=== PATIENT | male | born 1950 | race Asian ===

== ENCOUNTER → 2017-08-15 | Outpatient (CLI) | payer MEDICARE | END | disposition home or self-care (01) | LOC: CFH 15:44 | PROVIDERS: ATTEND Student in an Organized Health Care Education/Training Program | DX: M51.36 Other intervertebral disc degeneration, lumbar region (principal); M51.26 Other intervertebral disc displacement, lumbar region; M48.061 Spinal stenosis, lumbar region without neurogenic claudication; M25.78 Osteophyte, vertebrae; M41.9 Scoliosis, unspecified | CPT/HCPCS: 72148 ==

== ENCOUNTER 2017-12-18 15:14 | Emergency (ER) | payer MEDICARE ==
[~2017-12-18] VITALS: Ht 162.6 cm; Wt 64.0 kg
[2017-12-18 15:39] LABS: BASOPHILS # (AUTO) 0.03 x10^3/uL (0-0.1); BASOPHILS % (AUTO) 0 % (0-1); EOSINOPHILS # (AUTO) 0.04 x10^3/uL (0-0.4); EOSINOPHILS % (AUTO) 0 % (1-7); LYMPHOCYTES # (AUTO) 3.71 x10^3/uL (1-3.4); LYMPHOCYTES % (AUTO) 42 % (22-44); MD NO; MEAN CORPUSCULAR HEMOGLOBIN 33.5 pg (27.5-34.5); MEAN CORPUSCULAR HGB CONC 34.1 g/dL (33.2-36.2); MEAN CORPUSCULAR VOLUME 98.2 fL (81-97); MEAN PLATELET VOLUME 9.7 fL (7.4-10.4); MONOCYTES # (AUTO) 0.52 x10^3/uL (0.2-0.8); MONOCYTES % (AUTO) 6 % (2-9); NEUTROPHILS # (AUTO) 4.62 x10^3/uL (1.8-6.8); NEUTROPHILS % (AUTO) 52 % (42-75); PLATELET COUNT 159 x10^3/uL (130-400); RED BLOOD COUNT 5.02 x10^6/uL (4.38-5.82); RED CELL DISTRIBUTION WIDTH 14.2 % (9.4-14.8)
[2017-12-18] MEDS ORDERED: ATOR40TA PO (15:40)
[2017-12-18] MEDS ORDERED: ESOM40CA PO (15:40)
[2017-12-18] MEDS ORDERED: ALLO300T PO (15:40)
[2017-12-18] MEDS ORDERED: ASPI-496 PO (15:40)
[2017-12-18 15:50] LABS: ALBUMIN 4.3 g/dL (3.4-5.0); ANION GAP 7 mmol/L (5-15); CALCIUM 9.3 mg/dL (8.5-10.1); CHLORIDE 107 mmol/L (98-107)
[2017-12-18] MEDS ORDERED: ASPIRIN 81 MG TABLET CHEW PO ONE (17:00)
[2017-12-18] MEDS ORDERED: MAALOX/HYOSCYAMINE/LIDOCAINE 45 ML BTL PO ONE (17:30)
[2017-12-18] MEDS ORDERED: ASPIRIN 81 MG TABLET CHEW ONE (17:32)
[2017-12-18] MEDS ORDERED: MAALOX/HYOSCYAMINE/LIDOCAINE 45 ML BTL ONE (17:32)
[2017-12-18 17:42] LABS: TROPONIN I 0.066 ng/mL (0.000-0.045)
[2017-12-18 18:28] VITALS: BP 121/78
== END 2017-12-18 18:30 | disposition home or self-care (01) ==
LOC: ED 16:49
DX: R07.89 Other chest pain (principal); I25.2 Old myocardial infarction; I25.10 Atherosclerotic heart disease of native coronary artery without angina pectoris; E78.5 Hyperlipidemia, unspecified; M10.9 Gout, unspecified; Z95.1 Presence of aortocoronary bypass graft
CPT/HCPCS: 36415; 71045; 80048; 82040; 84484; 85025; 93005; 99285

== ENCOUNTER → 2018-01-27 | Outpatient (CLI) | payer MEDICARE ==
[~2018-01-27] MED LIST: ALLO300T PO; ASPI-496 PO; ATOR40TA PO; ESOM40CA PO
== END | disposition home or self-care (01) ==
LOC: CFH 12:17
PROVIDERS: ATTEND Internal Medicine Cardiovascular Disease
DX: I21.29 ST elevation (STEMI) myocardial infarction involving other sites (principal); I25.9 Chronic ischemic heart disease, unspecified; Z95.1 Presence of aortocoronary bypass graft
CPT/HCPCS: 78452; 93017; A9502

== ENCOUNTER → 2018-03-14 | Outpatient (CLI) | payer MEDICARE ==
[~2018-03-14] MED LIST changes: +ALLO100T30 PO; +AMOX-291 PO; +ESOM20CA PO; +[UNRECOGNIZED DRUG - OTHER]
[2018-03-14 11:23] LABS: BASOPHILS # (AUTO) 0.02 x10^3/uL (0-0.1); BASOPHILS % (AUTO) 0 % (0-1); EOSINOPHILS # (AUTO) 0.08 x10^3/uL (0-0.4); EOSINOPHILS % (AUTO) 1 % (1-7); LYMPHOCYTES # (AUTO) 2.52 x10^3/uL (1-3.4); LYMPHOCYTES % (AUTO) 39 % (22-44); MD NO; MEAN CORPUSCULAR HEMOGLOBIN 32.8 pg (27.5-34.5); MEAN CORPUSCULAR HGB CONC 33.3 g/dL (33.2-36.2); MEAN CORPUSCULAR VOLUME 98.5 fL (81-97); MEAN PLATELET VOLUME 10.6 fL (7.4-10.4); MONOCYTES # (AUTO) 0.45 x10^3/uL (0.2-0.8); MONOCYTES % (AUTO) 7 % (2-9); NEUTROPHILS # (AUTO) 3.38 x10^3/uL (1.8-6.8); NEUTROPHILS % (AUTO) 52 % (42-75); PLATELET COUNT 146 x10^3/uL (130-400); RED BLOOD COUNT 4.94 x10^6/uL (4.38-5.82)
[2018-03-14 11:32] LABS: INTERNATIONAL NORMALIZED RATIO 0.98 (0.93-1.1); PROTHROMBIN TIME 10.4 Seconds (9.6-11.5)
[2018-03-14 11:33] LABS: ANION GAP 5 mmol/L (5-15); CALCIUM 9.6 mg/dL (8.5-10.1); CHLORIDE 105 mmol/L (98-107); CREATININE 1.06 mg/dL (0.7-1.3)
== END | disposition home or self-care (01) ==
LOC: STAR 10:13
PROVIDERS: ATTEND Internal Medicine Cardiovascular Disease
DX: Z01.818 Encounter for other preprocedural examination (principal); I25.10 Atherosclerotic heart disease of native coronary artery without angina pectoris; E78.2 Mixed hyperlipidemia; R03.0 Elevated blood-pressure reading, without diagnosis of hypertension; I34.0 Nonrheumatic mitral (valve) insufficiency; I10 Essential (primary) hypertension; E78.5 Hyperlipidemia, unspecified
CPT/HCPCS: 36415; 71046; 80048; 85025; 85610; 85730

== ENCOUNTER 2018-03-21 10:47 | Observation (INO) | payer MEDICARE ==
[~2018-03-21] VITALS: Ht 165.1 cm; Wt 63.3 kg
[2018-03-21] MEDS ORDERED: SODIUM CHLORIDE 0.9% 1,000 ML IV ONE (11:32)
[2018-03-21 11:37] VITALS: BP 151/92
[2018-03-21] MEDS ORDERED: MIDAZOLAM 1 MG/ML, 5ML ONE (12:45)
[2018-03-21] MEDS ORDERED: FENTANYL PF 100 MCG/2ML ONE (12:45)
[2018-03-21] MEDS ORDERED: LIDOCAINE-MPF 1%, 5ML ONE (12:46)
[2018-03-21] MEDS ORDERED: VERAPAMIL 2.5 MG/ML, 2ML ONE (12:46)
[2018-03-21] MEDS ORDERED: BIVALIRUDIN 250 MG ONE (12:46)
[2018-03-21] MEDS ORDERED: HEPARIN 1,000 UNITS/ML, 10ML ONE (12:46)
[2018-03-21] MEDS ORDERED: TICAGRELOR 90 MG TABLET ONE (12:46)
[2018-03-21 15:46] VITALS: BP 84/57
[2018-03-21] MEDS ORDERED: AMOXICILLIN 500 MG CAPSULE PO SCH (16:00)
[2018-03-21] MEDS: SODIUM CHLORIDE 0.9% 1,000 ML IV SCH ×2 (16:14→23:05)
[2018-03-21] MEDS ORDERED: ACETAMINOPHEN 325 MG TABLET PO PRN (19:00)
[2018-03-21 19:56] VITALS: BP 100/63
[2018-03-21] MEDS: TICAGRELOR 90 MG TABLET PO SCH (20:40)
[2018-03-21] MEDS ORDERED: ATORVASTATIN 40 MG TABLET PO SCH (21:00)
[2018-03-21] MEDS ORDERED: MECLIZINE CHEWABLE 25 MG TAB PO ONE (22:00)
[2018-03-22 00:45] VITALS: BP 108/67
[2018-03-22 05:30] LABS: BASOPHILS # (AUTO) 0.01 x10^3/uL (0-0.1); BASOPHILS % (AUTO) 0 % (0-1); EOSINOPHILS # (AUTO) 0.04 x10^3/uL (0-0.4); EOSINOPHILS % (AUTO) 1 % (1-7); LYMPHOCYTES # (AUTO) 1.53 x10^3/uL (1-3.4); LYMPHOCYTES % (AUTO) 21 % (22-44); MD NO; MEAN CORPUSCULAR HEMOGLOBIN 33.3 pg (27.5-34.5); MEAN CORPUSCULAR HGB CONC 34.4 g/dL (33.2-36.2); MEAN CORPUSCULAR VOLUME 96.8 fL (81-97); MEAN PLATELET VOLUME 9.8 fL (7.4-10.4); MONOCYTES # (AUTO) 0.56 x10^3/uL (0.2-0.8); MONOCYTES % (AUTO) 8 % (2-9); NEUTROPHILS # (AUTO) 5.14 x10^3/uL (1.8-6.8); NEUTROPHILS % (AUTO) 71 % (42-75); PLATELET COUNT 137 x10^3/uL (130-400); RED BLOOD COUNT 4.19 x10^6/uL (4.38-5.82); RED CELL DISTRIBUTION WIDTH 13.2 % (9.4-14.8)
[2018-03-22 05:45] LABS: ANION GAP 9 mmol/L (5-15); CALCIUM 8.3 mg/dL (8.5-10.1); CHLORIDE 110 mmol/L (98-107)
[2018-03-22 05:46] LABS: CREATININE 0.84 mg/dL (0.7-1.3)
[2018-03-22] MEDS: SODIUM CHLORIDE 0.9% 1,000 ML IV SCH (07:05)
[2018-03-22 08:34] VITALS: BP 126/78
[2018-03-22] MEDS: TICAGRELOR 90 MG TABLET PO SCH (08:44)
[2018-03-22] MEDS ORDERED: ALLOPURINOL 100 MG TABLET PO SCH (09:00)
[2018-03-22] MEDS ORDERED: ASPIRIN 81 MG TABLET EC PO SCH (09:00)
[2018-03-22] MEDS ORDERED: ASPIRIN 81 MG TABLET CHEW PO SCH (09:00)
[2018-03-22] MEDS ORDERED: ISOSORBIDE MONONITRATE ER 30 MG TABLET PO SCH (09:00)
[2018-03-22] MEDS ORDERED: PANTOPROZOLE 40MG TABLET PO SCH (09:00)
[2018-03-22] MEDS ORDERED: TICA90TA PO (09:10)
== END 2018-03-22 12:07 | disposition home or self-care (01) ==
LOC: CACL 10:47 → 5SO 15:05 → CACL 15:05 → 5SO 15:23
PROVIDERS: ADMIT Internal Medicine Cardiovascular Disease; ATTEND Internal Medicine Cardiovascular Disease
DX: I25.10 Atherosclerotic heart disease of native coronary artery without angina pectoris (principal); I34.0 Nonrheumatic mitral (valve) insufficiency; E78.2 Mixed hyperlipidemia; R03.0 Elevated blood-pressure reading, without diagnosis of hypertension
CPT/HCPCS: 36415; 80048; 85025; 93459; 99156; 99157; C1725; C1769; C1874; C1887; C1894; C9600; G0378; J0583; J1644; J2250; J3010; J7030; Q9967

== ENCOUNTER 2019-04-26 11:00 | Emergency (ER) | payer MEDICARE ==
[~2019-04-26] VITALS: Ht 165.1 cm; Wt 64.9 kg
[~2019-04-26 11:00] MED LIST changes: +TICA90TA PO
[2019-04-26] MEDS ORDERED: ONDANSETRON 2MG/ML, 2ML IVPush ONE (12:00)
[2019-04-26] MEDS ORDERED: SODIUM CHLORIDE FLUSH 10ML SYR IVF ONE (12:00)
[2019-04-26 12:02] LABS: BASOPHILS # (AUTO) 0.02 x10^3/uL (0-0.1); BASOPHILS % (AUTO) 1 % (0-1); EOSINOPHILS # (AUTO) 0.09 x10^3/uL (0-0.4); EOSINOPHILS % (AUTO) 2 % (1-7); LYMPHOCYTES # (AUTO) 1.61 x10^3/uL (1-3.4); LYMPHOCYTES % (AUTO) 33 % (22-44); MD NO; MEAN CORPUSCULAR HEMOGLOBIN 32.3 pg (27.5-34.5); MEAN CORPUSCULAR HGB CONC 33.6 g/dL (33.2-36.2); MEAN CORPUSCULAR VOLUME 96.4 fL (81-97); MEAN PLATELET VOLUME 9.1 fL (7.4-10.4); MONOCYTES # (AUTO) 0.52 x10^3/uL (0.2-0.8); MONOCYTES % (AUTO) 11 % (2-9); NEUTROPHILS # (AUTO) 2.62 x10^3/uL (1.8-6.8); NEUTROPHILS % (AUTO) 54 % (42-75); PLATELET COUNT 145 x10^3/uL (130-400); RED BLOOD COUNT 4.97 x10^6/uL (4.38-5.82); RED CELL DISTRIBUTION WIDTH 13.1 % (9.4-14.8)
[2019-04-26 12:11] LABS: ANION GAP 7 mmol/L (5-15); CALCIUM 9.1 mg/dL (8.5-10.1); CHLORIDE 103 mmol/L (98-107); CREATININE 1.22 mg/dL (0.7-1.3)
[2019-04-26 12:12] LABS: ALANINE AMINOTRANSFERASE 57 U/L (12-78); ALBUMIN 3.8 g/dL (3.4-5.0)
[2019-04-26 12:13] LABS: ALKALINE PHOSPHATASE 87 U/L (45-117); BILIRUBIN,TOTAL 0.7 mg/dL (0.2-1.0); TOTAL PROTEIN 7.4 g/dL (6.4-8.2)
[2019-04-26] MEDS ORDERED: ONDANSETRON 2MG/ML, 2ML ONE (12:31)
[2019-04-26] MEDS ORDERED: MORPHINE SULFATE 4 MG/ML, 1ML ONE ×2 (12:32→15:00)
[2019-04-26] MEDS: MORPHINE SULFATE 4 MG/ML, 1ML IVPush PRN ×2 (12:51→15:09)
--- NOTE | 2019-04-26 13:18 | NUR ---
RECEIVED REPORT FROM SEPIDEH VIDALES, ASSUMING CARE OF PT NOW.
--- NOTE | 2019-04-26 13:19 | NUR ---
ALL RESULTS BACK AT THIS TIME, CHART UP FOR RECHECK
--- NOTE | 2019-04-26 13:28 | NUR ---
PT RESTING CALMLY IN BED, HELEN BERNAL. FAMILY AT BEDSIDE. AWAITING MD RECHECK AND FURTHER ORDERS AT THIS TIME
--- NOTE | 2019-04-26 13:40 | NUR ---
ADDITIONAL ORDERS RECEIVED AT THIS TIME
--- NOTE | 2019-04-26 14:14 | NUR ---
REPORT GIVEN TO DC VIDALES. PT TO CT
[2019-04-26] MEDS ORDERED: OMNIPAQUE 350 MG/ML, 100ML BOTTLE ONE (14:39)
[2019-04-26 15:01] VITALS: BP 120/68
--- NOTE | 2019-04-26 15:32 | NUR ---
Pt medicated with additional morphine and given po fluids per md.
[2019-04-26] MEDS ORDERED: ONDANSETRON ODT 4 MG ONE (15:42)
[2019-04-26] MEDS ORDERED: ONDANSETRON ODT 4 MG PO ONE (16:00)
--- NOTE | 2019-04-26 16:45 | NUR ---
Patient/Caregiver given discharge instructions and they have confirmed that they understand the instructions. Patient ambulatory with steady gait.
== END 2019-04-26 16:46 ==
LOC: ED 12:28
DX: R10.11 Right upper quadrant pain (principal); I25.10 Atherosclerotic heart disease of native coronary artery without angina pectoris; M10.9 Gout, unspecified; I25.2 Old myocardial infarction; E78.5 Hyperlipidemia, unspecified
CPT/HCPCS: 36415; 74177; 76700; 80053; 83690; 85025; 96374; 96375; 96376; 99284; J2270; J2405; Q0162; Q9967

== ENCOUNTER 2019-10-13 12:06 | Outpatient (CLI) | payer MEDICARE ==
[2019-10-26] MEDS ORDERED: MAGNESIUM PO (13:58)
[2019-10-26] MEDS ORDERED: CLOP75TA PO (13:58)
[2019-10-26] MEDS ORDERED: MULT-751 PO (13:58)
== END 2019-10-13 23:59 | disposition home or self-care (01) ==
LOC: CFH 12:06
PROVIDERS: ATTEND Internal Medicine Cardiovascular Disease
DX: Z01.810 Encounter for preprocedural cardiovascular examination (principal); I49.3 Ventricular premature depolarization; I25.89 Other forms of chronic ischemic heart disease
CPT/HCPCS: 78452; 93017; A9502

== ENCOUNTER → 2019-10-26 | Outpatient (CLI) | payer MEDICARE ==
[~2019-10-26] MED LIST changes: +CLOP75TA PO; +MAGNESIUM PO; +MULT-751 PO
== END | disposition home or self-care (01) ==
LOC: STAR 13:36
PROVIDERS: ATTEND Surgery
DX: Z01.818 Encounter for other preprocedural examination (principal); K80.20 Calculus of gallbladder without cholecystitis without obstruction; R94.31 Abnormal electrocardiogram [ECG] [EKG]
CPT/HCPCS: 93005

== ENCOUNTER 2019-10-29 10:30 | Outpatient (CLI) | payer MEDICARE | END 2019-10-29 23:59 | disposition home or self-care (01) | LOC: STAR 10:30 | PROVIDERS: ATTEND Anesthesiology | DX: Z01.818 Encounter for other preprocedural examination (principal); Z11.59 Encounter for screening for other viral diseases | CPT/HCPCS: 36415; 87635 ==

== ENCOUNTER 2019-11-02 06:14 | Day surgery (SDC) | payer MEDICARE ==
[2019-10-26 14:10] VITALS: BP 129/76
[~2019-11-02] VITALS: Ht 165.1 cm; Wt 61.4 kg
[2019-11-02] MEDS ORDERED: BUPIVACAINE/PF-EPI 0.5% 1:200K ONE (06:30)
[2019-11-02] MEDS ORDERED: LACTATED RINGERS 1,000 ML IV SCH (06:39)
[2019-11-02 06:53] VITALS: BP 129/76
[2019-11-02] MEDS ORDERED: CHLORHEXIDINE 15 ML UDC MM ONE (07:00)
[2019-11-02] MEDS ORDERED: FENTANYL PF 250 MCG/5ML ONE (07:19)
[2019-11-02] MEDS ORDERED: MIDAZOLAM 1 MG/ML, 2ML ONE (07:55)
[2019-11-02] MEDS ORDERED: CEFOTETAN 2 GM ONE (07:59)
[2019-11-02] MEDS ORDERED: hydrALAzine 20 MG/ML, 1ML IV PRN (08:00)
[2019-11-02] MEDS ORDERED: HYDROmorphone 1 MG/ML, 1ML INJ IVPush PRN (08:00)
[2019-11-02] MEDS ORDERED: ACETAMINOPHEN 325 MG TABLET PO PRN (08:00)
[2019-11-02] MEDS ORDERED: PROMETHAZINE 25 MG/ML, 1ML IVPush PRN (08:00)
[2019-11-02] MEDS ORDERED: MEPERIDINE/PF 25MG/0.5ML IVPush PRN (08:00)
[2019-11-02] MEDS ORDERED: morphine SULFATE 10 MG/ML, 1ML IVPush PRN (08:00)
[2019-11-02] MEDS ORDERED: HALOPERIDOL 5 MG/ML IV PRN (08:00)
[2019-11-02] MEDS ORDERED: LABETALOL 5MG/ML, 20ML IV PRN (08:00)
[2019-11-02] MEDS ORDERED: OXYcodone 5 MG/5 ML ORAL.SOL UDC PO PRN (08:00)
[2019-11-02] MEDS ORDERED: PROPOFOL 10 MG/ML, 20ML ONE (08:35)
[2019-11-02] MEDS ORDERED: DEXAMETHASONE 4 MG/ML, 1ML ONE (08:35)
[2019-11-02] MEDS ORDERED: GLYCOPYRROLATE 0.2MG/1ML, 5ML ONE (08:35)
[2019-11-02] MEDS ORDERED: ROCURONIUM 10MG/ML,5ML ONE (08:35)
[2019-11-02] MEDS ORDERED: ONDANSETRON 2MG/ML, 2ML ONE (08:35)
[2019-11-02] MEDS ORDERED: NEOSTIGMINE 1 MG/ML, 10ML ONE (08:35)
[2019-11-02] MEDS ORDERED: SUGAMMADEX 200 MG/2 ML IVPush ONE (08:37)
[2019-11-02] MEDS ORDERED: FENTANYL PF 100 MCG/2ML ONE (09:09)
[2019-11-02] MEDS: FENTANYL PF 100 MCG/2ML IV PRN ×3 (09:10→09:30)
[2019-11-02] MEDS ORDERED: ACETAMINOPHEN 650 MG/20.3 ML UDC ONE (09:17)
[2019-11-02] MEDS ORDERED: OXYcodone 5 MG/5 ML ORAL.SOL UDC ONE (09:18)
== END 2019-11-02 11:00 | disposition home or self-care (01) ==
LOC: OUT 06:14
PROVIDERS: ATTEND Surgery
DX: K82.8 Other specified diseases of gallbladder (principal); R22.2 Localized swelling, mass and lump, trunk; L72.8 Other follicular cysts of the skin and subcutaneous tissue; I10 Essential (primary) hypertension; I25.10 Atherosclerotic heart disease of native coronary artery without angina pectoris; E78.5 Hyperlipidemia, unspecified; M10.9 Gout, unspecified; Z79.82 Long term (current) use of aspirin; Z79.899 Other long term (current) drug therapy; Z88.1 Allergy status to other antibiotic agents; Z95.5 Presence of coronary angioplasty implant and graft
CPT/HCPCS: 21550; 47562; 88304; 88305; J1100; J2250; J2405; J2704; J2710; J3010; J3490; J7120